=== PATIENT | female | born 1945 | race Caucasian/White ===

== ENCOUNTER 2022-07-08 10:45 | Outpatient (CLI) | payer MEDICARE, OTHER | END 2022-07-08 10:46 | disposition home or self-care (01) | LOC: CSHCT 10:45 | PROVIDERS: ATTEND Nurse Practitioner Adult Health | DX: Z12.2 Encounter for screening for malignant neoplasm of respiratory organs (principal); F17.210 Nicotine dependence, cigarettes, uncomplicated; J43.2 Centrilobular emphysema; R91.8 Other nonspecific abnormal finding of lung field; K76.89 Other specified diseases of liver; K80.20 Calculus of gallbladder without cholecystitis without obstruction | CPT/HCPCS: 71271 ==

== ENCOUNTER 2022-08-17 16:11 | Outpatient (CLI) | payer MEDICARE, OTHER | END 2022-08-17 16:12 | disposition home or self-care (01) | LOC: CSHRAD 16:11 | PROVIDERS: ATTEND Nurse Practitioner Adult Health | DX: M54.50 Low back pain, unspecified (principal); W18.30XA Fall on same level, unspecified, initial encounter; M41.9 Scoliosis, unspecified | CPT/HCPCS: 72100 ==

== ENCOUNTER 2023-08-19 15:04 | Outpatient (CLI) | payer MEDICARE, OTHER | END 2023-08-19 15:05 | disposition home or self-care (01) | LOC: CSHMAMMO 15:04 | PROVIDERS: ATTEND Internal Medicine | DX: Z12.31 Encounter for screening mammogram for malignant neoplasm of breast (principal); Z80.3 Family history of malignant neoplasm of breast | CPT/HCPCS: 77063; 77067 ==